=== PATIENT | male | born 2000 | race Caucasian/White ===

== ENCOUNTER 2021-08-16 16:51 | Emergency (ER) | payer BC, OTHER ==
[2021-08-16 17:01] VITALS: PULSE 89; O2SAT 100
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
[2021-08-16 18:06] VITALS: BP 137/85
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
== END 2021-08-16 18:09 | disposition home or self-care (01) ==
LOC: ED 16:51
DX: S80.01XA Contusion of right knee, initial encounter (principal); S40.021A Contusion of right upper arm, initial encounter; S00.33XA Contusion of nose, initial encounter; V53.5XXA Driver of pick-up truck or van injured in collision with car, pick-up truck or van in traffic accident, initial encounter; Y92.413 State road as the place of occurrence of the external cause
CPT/HCPCS: 70160; 73080; 73562; 99285